=== PATIENT | male | born 1935 | race Caucasian/White ===

== ENCOUNTER → 2020-08-24 | Day surgery (SDC) | payer MEDICARE ==
[~2020-08-24] VITALS: Ht 172.7 cm; Wt 64.5 kg
[~2020-08-24] MED LIST: PRILOSEC 20MG20 MG PO
[2020-08-24 07:50] VITALS: TEMP 98.6
[2020-08-24 10:40] VITALS: BP 116/60; PULSE 55
== END ==
LOC: SDCO 08-23 16:33
DX: T18.128A Food in esophagus causing other injury, initial encounter (principal); K22.2 Esophageal obstruction; K21.00 Gastro-esophageal reflux disease with esophagitis, without bleeding
CPT/HCPCS: J2704; J7120